=== PATIENT | female | born 1965 | race Asian ===

== ENCOUNTER → 2016-06-03 | Outpatient (CLI) | payer OTHER | END | disposition home or self-care (01) | LOC: PTH.S 05-23 10:30 | DX: R73.09 Other abnormal glucose (principal) ==

== ENCOUNTER → 2016-09-13 | Outpatient (CLI) | payer OTHER | END | disposition home or self-care (01) | LOC: PTH.S 09:27 | DX: E11.9 Type 2 diabetes mellitus without complications (principal) ==